=== PATIENT | male | born 1945 | race Caucasian/White ===

== ENCOUNTER 2023-06-22 09:24 | Emergency (ER) | payer OTHER, SELFPAY ==
[2023-06-22 09:28] VITALS: BP 166/73
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
--- NOTE | 2023-06-22 11:43 | EDRN ---
REviewed discharge instructions with patient. Verbalized understanding. Ambulated with steady gait to the lobby.
[2023-06-22 11:44] VITALS: BP 159/77
== END 2023-06-22 11:44 | disposition home or self-care (01) ==
LOC: EMR 09:24
PROVIDERS: EMERGENCY PHYSICIAN Emergency Medicine; FAMILY PHYSICIAN Family Medicine
DX: L03.011 Cellulitis of right finger (principal); I25.10 Atherosclerotic heart disease of native coronary artery without angina pectoris; I10 Essential (primary) hypertension; E78.00 Pure hypercholesterolemia, unspecified; I25.2 Old myocardial infarction; Z95.5 Presence of coronary angioplasty implant and graft; Z79.82 Long term (current) use of aspirin
CPT/HCPCS: 99283

== ENCOUNTER → 2023-08-18 06:27 | Day surgery (SDC) | payer OTHER, SELFPAY | LOC: GI 06:27 | PROVIDERS: ATTENDING PHYSICIAN Specialist; FAMILY PHYSICIAN Family Medicine | DX: Z12.11 Encounter for screening for malignant neoplasm of colon (principal); D12.3 Benign neoplasm of transverse colon; K63.5 Polyp of colon; K57.30 Diverticulosis of large intestine without perforation or abscess without bleeding; K64.8 Other hemorrhoids; Z86.010 Personal history of colon polyps | CPT/HCPCS: 45380; 88305 ==

== ENCOUNTER → 2024-04-06 13:31 | Outpatient (REF) | payer OTHER, SELFPAY | LOC: RAD 13:31 | PROVIDERS: ATTENDING PHYSICIAN Nurse Practitioner Family | DX: M25.522 Pain in left elbow (principal); M79.642 Pain in left hand; M79.602 Pain in left arm | CPT/HCPCS: 73080; 73110; 73130 ==

== ENCOUNTER → 2024-05-02 12:40 | Outpatient (REF) | payer OTHER, SELFPAY | LOC: EMG 12:40 | PROVIDERS: ATTENDING PHYSICIAN Nurse Practitioner Family | DX: M25.522 Pain in left elbow (principal) | CPT/HCPCS: 95886; 95909 ==

== ENCOUNTER 2025-01-01 14:45 | Outpatient (RCR) | payer OTHER, SELFPAY | END 2025-01-01 23:59 | disposition home or self-care (01) | LOC: RPT 14:45 | PROVIDERS: ATTENDING PHYSICIAN Orthopaedic Surgery; FAMILY PHYSICIAN Family Medicine | DX: M16.0 Bilateral primary osteoarthritis of hip (principal); M16.11 Unilateral primary osteoarthritis, right hip (principal); M16.12 Unilateral primary osteoarthritis, left hip; R26.89 Other abnormalities of gait and mobility; Z73.6 Limitation of activities due to disability; M54.9 Dorsalgia, unspecified | CPT/HCPCS: 97110; 97140; 97162 ==

== ENCOUNTER 2025-01-22 07:29 | Outpatient (RCR) | payer OTHER, SELFPAY | END 2025-01-28 09:06 | disposition home or self-care (01) | LOC: RPT 07:29 | PROVIDERS: ATTENDING PHYSICIAN Orthopaedic Surgery; FAMILY PHYSICIAN Family Medicine | DX: M16.11 Unilateral primary osteoarthritis, right hip (principal); M16.0 Bilateral primary osteoarthritis of hip (principal); Z73.6 Limitation of activities due to disability; R26.89 Other abnormalities of gait and mobility; M54.9 Dorsalgia, unspecified; M25.551 Pain in right hip; M16.12 Unilateral primary osteoarthritis, left hip | CPT/HCPCS: 97110; 97140 ==